=== PATIENT | female | born 1980 | race Caucasian/White ===

== ENCOUNTER 2023-09-27 12:50 | Emergency (ER) | payer OTHER, SELFPAY ==
--- NOTE | ~2023-09-27 | CT_ITS ---
EXAMINATION CT HEAD WITHOUT CONTRAST CLINICAL INFORMATION: Dizziness COMPARISON: None TECHNIQUE: CT of the head was performed without intravenous contrast. Reformatted axial, coronal, and sagittal images were reviewed. This CT examination was performed using dose optimization techniques as appropriate, variously including the following: *Automated exposure control *Adjustment of mA and/or kV according to patient size (this includes techniques or standardized protocols for targeted exams where dose is matched to indication/reason for exam; i.e. extremities or head) *Use of iterative reconstruction technique DLP: 128 mGy-cm FINDINGS: No intracranial hemorrhage, extra-axial fluid collection, or midline shift is identified. Aguillon-white matter differentiation is preserved. The ventricles are within normal limits. Basal cisterns are within normal limits. Paranasal sinuses are clear. Mastoid air cells and middle ear cavities are clear. No acute calvarial fractures. CT/CT head/brain wo IV con IMPRESSION: No acute intracranial abnormality.
--- NOTE | 2023-09-27 13:13 | ED_ITS ---
HPI - General Adult General Chief complaint: Dizziness Stated complaint: Dizziness Time Seen by Provider: 09/27/23 18:50 Source: patient Mode of arrival: ambulatory Limitations: no limitations History of Present Illness ED Provider: Roberth Goodrich PA-C HPI narrative: 43 yold female with pmh of gestational diabetes presents to the ED for dizzinees off and since monday describes as the room is spinning. Patient states dizziness occurs most when she is lying down and take position of her head. Patient states recently traveled from [facility]. Patient did have popping sound in both ears. Patient denies bleeding from the ears, ear pain, ringing in the ear, chest pain, shortness of breath, leg swelling, calf pain, coughing up blood, slurred speech, pleurisy facial droop, paralysis of extremities, loss of vision, recent surgery, or syncopal episode. Related Data Allergies Allergy/AdvReac Type Severity Reaction Status Date / Time No Known Allergies Allergy Verified 09/27/23 13:16 Review of Systems 2 Review of Systems: dizziness described as room spiining. Yes all other systems are reviewed and are negative PMFSH Social History Social History Advance Directives: No Advance Directives Information Provided: No Do you have a plan to hurt others: No Plan Physical Exam ED Vital Signs: Vital Signs - 24 hr 09/27/23 18:45 09/27/23 19:12 09/27/23 19:14 Temperature 98.6 F Pulse Rate 79 64 77 Respiratory Rate 18 Blood Pressure 129/96 H 137/87 138/94 H Pulse Oximetry 100 Oxygen Delivery Method Room Air 09/27/23 19:16 09/27/23 20:09 Temperature 97.8 F Pulse Rate 86 67 Respiratory Rate 16 Blood Pressure 133/94 H 135/93 H Pulse Oximetry 98 Oxygen Delivery Method Room Air BMI result Body Mass Index 29.5 Const General: cooperative, healthy appearing, comfortable, no acute distress, well developed, alert, awake and Physically active Orientation/consciousness: patient oriented x3 HENMT Head: Yes normal to inspection, Yes No palpable skull fracture present, Yes normocephalic and Yes atraumatic Ears: hearing grossly normal bilaterally, external ears normal, TM's normal bilaterally, TM normal on the right, TM normal on the left, EAC's normal, mastoids normal and no periauricular adenopathy Eyes Other: positive for horizontal nystagums when changing head position. General: appearance normal, both eyes and all related structures Neck Neck: Yes normal visual inspection, Yes full ROM, Yes no lymphadenopathy, Yes no meningeal signs, Yes trachea midline, Yes supple, No anterior neck swelling and No tender Chest Chest palpation & inspection: normal inspection of the chest and normal palpation of entire chest wall Resp Effort & Inspection: normal respiratory effort and able to speak in complete sentences Auscultation: clear to auscultation bilaterally Cardio Jugular venous distension: no JVD Heart sounds: S1 normal heart sound present and S2 normal heart sound present GI Inspection: Yes normal to inspection Palpation (GI): Soft to palpation, not firm, nontender, no guarding and not rigid General: No CVA tenderness and Yes no CVA tenderness Back/Spine/Pelvis Back: no CVA tenderness, No CVA tenderness and No back tenderness Skin General skin exam: no rashes or lesions noted, elasticity normal and turgor normal Neuro General: patient oriented x3, gait normal, tone normal, moves all extremities, Normal light touch and pain sensation, no meningeal signs, no focal motor deficits, CN's II-XI intact bilaterally and normal sensation to monofilament Extrem Other: Bilateral lower extremities negative for swelling, pitting edmea, or calf pain General: Yes normal to inspection, Yes full ROM and Yes capillary refill normal Psych Appearance: grossly normal, well kempt and not disheveled Course Course Course Narrative: This is a rapid medical exam performed by Roni Carvalho NP: Additional HPI, ROS, PE not included below will be deferred to primary provider. Patient is a 43-year-old female presenting to the emergency department with complaint of episodic extreme dizziness, worse with laying down and standing up since Monday night. Associated nausea. Was on an airplane nearly all day Monday. Ambulating with steady gait. Right EAC impacted with cerumen. Plan: EKG, labs Medications Administered Discontinued Medications Generic Name Dose Route Start Last Admin Trade Name Freq PRN Reason Stop Dose Admin Meclizine HCl 50 mg 09/27/23 19:10 09/27/23 19:50 Meclizine Hcl 25 Mg Tablet PO 09/27/23 19:11 50 mg ONCE ONE Administration Medical Decision Making Medical Decision Making [facility] Narrative: 43-year-old female with dizziness described as room spinning presents to the ED for room spinning sensation. Patient denies any neuro deficits. Physical exam positive for slight horizontal nystagmus. Negative for vertical nystagmus. Negative for any neuro deficits. NIH score is 0. 10:02pm: Patient head CT scan normal. Troponin negative. Heart score 0. Not suspecting stroke, posterior cerebellar infarct, carotid dissection, vertebral cerebral stenosis, meningitis, encephalitis, myocardial infarction, or brain bleed. Orthostatics negative. Want to the BED to speak to patient and as per nurse Valente patient left without completion of treatment. Patient left before CT scan results or prescription of meclizine could be sent Differential Diagnosis Differential Diagnoses: The differential diagnosis associated with the presentation includes (Vertigo, dizziness) Admission/Observation Consideration of admission/observation: Escalation of care including admission/observation considered Lab Data MDM Lab Attestation statement: I reviewed the patient's lab results. 09/27/23 13:34 09/27/23 13:34 Labs: Lab Results 09/27/23 09/27/23 Range/Units 13:34 19:27 WBC 8.3 (4.8-10.8) X10*3/uL RBC 4.44 (4.20-5.50) X10*6/uL Hgb 13.6 (12.0-16.0) g/dl Hct 40.4 (37.0-47.0) % MCV 91.0 (80.0-98.0) fL MCH 30.6 (27.0-33.0) pg MCHC 33.7 (31.0-35.0) g/dl RDW 13.2 (11.0-16.0) % Plt Count 253 (160-400) X10*3/uL MPV 9.0 L (9.4-12.3) fL Immature Gran % (Auto) 0.2 (0.0-0.4) % Neut % (Auto) 74.6 H (45-73) % Lymph % (Auto) 15.6 L (20-40) % Hocking % (Auto) 7.5 (2-11) % Eos % (Auto) 1.7 (0-4) % Baso % (Auto) 0.4 (0-2) % Lymph # (Auto) 1.3 (1.2-4.9) X10*3/uL [place] # (Auto) 0.6 (0.1-1.2) X10*3/uL Eos # (Auto) 0.1 (0.0-0.4) X10*3/uL Baso # (Auto) 0.0 (0.0-0.2) X10*3/uL Abs Immat Gran (auto) 0.02 (0.00-0.03) X10*3/uL Absolute Neuts (auto) 6.2 (2.0-8.3) x10*3/uL Absolute Nucleated RBC 0.000 (0.0-0.012) X10*3/uL Nucleated RBC % (auto) 0.0 (0.0-0.2) /100WBC Sodium 137 (135-145) mmol/L Potassium 3.8 (3.3-5.1) mmol/L Chloride 106 (96-108) mmol/L Carbon Dioxide 25 (22-29) mmol/L Anion Gap 10 L (12-20) BUN 13 (9-16) mg/dL Creatinine 0.80 (0.5-1.4) mg/dL Estim Creat Clear Calc 105.2 Estimated GFR > 60 Random Glucose 118 H (60-115) mg/dL Calcium 9.1 (8.4-10.2) mg/dL Total Bilirubin 0.3 (0.0-1.0) mg/dL AST 16 (5-31) U/L ALT 10 (0-31) U/L Alkaline Phosphatase 65 (39-117) U/L Troponin I High Sens < 2.7 (<3.5-17.0) ng/L Total Protein 7.3 (6.5-8.0) g/dL Albumin 4.1 (3.5-5.0) g/dL Beta HCG, Quant < 2 mIU/mL Independent Interpretation I performed an independent interpretation of an: EKG (EKG negative STEMI) and CT Scan Radiology Impression Discussion of test interpretation with radiology: I have reviewed the radiologist's reading. Independent Historian Clinical information obtained from an independent historian. History obtained from or confirmed by: Other (Patient) External Record Review External record reviewed: Other (Prior visits) Prescription Management I considered prescription management with: Other (Meclizine) Critical Care Time Critical Care Time Critical Care Time: No Discharge Plan Discharge Clinical Impression: Dizziness, Vertigo Patient Disposition: Left W/O Completing Treatment Discharge Date/Time: 09/27/23 21:35
[2023-09-27 13:14] VITALS: BP 142/93; PULSE 77; RESP 16; TEMP 36.6; O2SAT 98; BMI 29.5
--- NOTE | 2023-09-27 13:16 | ECG_ITS ---
Test Reason : DIZZINESS Blood Pressure : / mmHG Vent. Rate : 072 BPM Atrial Rate : 072 BPM P-R Int : 134 ms QRS Dur : 092 ms QT Int : 370 ms P-R-T Axes : 051 010 031 degrees QTc Int : 405 ms Normal sinus rhythm Low voltage QRS Borderline ECG No previous ECGs available Referred By: Citlali Carvalho Electronically Signed By:ROGER MATTA
[2023-09-27 13:37] LABS: MANUAL DIFF FLAG NO
[2023-09-27 13:39] LABS: Basophils Percent Auto 0.4 % (0-2); Eosinophils Absolute Auto 0.1 X10*3/uL (0.0-0.4); Eosinophils Percent Auto 1.7 % (0-4); Hematocrit 40.4 % (37.0-47.0); Hemoglobin 13.6 g/dl (12.0-16.0); Imm Gran Abs Auto 0.02 X10*3/uL (0.00-0.03); Imm Gran Pct Auto 0.2 % (0.0-0.4); Lymphocytes Absolute Auto 1.3 X10*3/uL (1.2-4.9); Lymphocytes Percent Auto 15.6 % (20-40); Mean Corpuscular HGB Conc 33.7 g/dl (31.0-35.0); Mean Corpuscular Hemoglobin 30.6 pg (27.0-33.0); Monocytes Absolute Auto 0.6 X10*3/uL (0.1-1.2); Monocytes Percent Auto 7.5 % (2-11); Neutrophils Absolute Auto 6.2 x10*3/uL (2.0-8.3); Neutrophils Percent Auto 74.6 % (45-73); Platelet Count 253 X10*3/uL (160-400); Red Blood Count 4.44 X10*6/uL (4.20-5.50); Red Cell Distribution Width 13.2 % (11.0-16.0); White Blood Count 8.3 X10*3/uL (4.8-10.8)
[2023-09-27 14:07] LABS: Alanine Aminotransferase 10 U/L (0-31); Albumin Level 4.1 g/dL (3.5-5.0); Alkaline Phosphatase 65 U/L (39-117); Anion Gap 10 (12-20); Aspartate Amino Transferase 16 U/L (5-31); Bilirubin Total 0.3 mg/dL (0.0-1.0); Blood Urea Nitrogen 13 mg/dL (9-16); Calcium 9.1 mg/dL (8.4-10.2); Carbon Dioxide 25 mmol/L (22-29); Chloride 106 mmol/L (96-108); Creatinine Clr Calc Pharmacy 105.2; Estimated Glomerular Filt Rate > 60; Glucose Random 118 mg/dL (60-115); HCG Quantitative < 2 mIU/mL; Potassium 3.8 mmol/L (3.3-5.1); Sodium 137 mmol/L (135-145); Total Protein 7.3 g/dL (6.5-8.0)
--- OUTSIDE RECORDS SUMMARY | 2023-09-27 18:13 | XMS_ITS | Continuity of Care Document ---
Author Organization [facility] ancer Care Address [address] [place] [address]- Care Team Providers Care Underground Bolting Machine Operator Name Role Phone Tim Farnsworth MD Primary Care Physician Encounter [facility] ACCT R [id number] Date(s): 10/18/22 - 11/17/22 [facility] Care [address] [place] [id number] Attending Physician: Felton Smith Admitting Physician: Admtr, [id number] Referring Physician: Admtr, [id number] Allergies, Adverse Reactions, Alerts Substance Reaction Severity Status Other Environmental Allergy Allergy to p ollen Trees and shrubs Active Immunizations Given and Recorded Vaccine Date Status Refusal Reason SARS-CoV-2 (COVID-19) mRNA BNT-162b2 vac 06/05/20 Given SARS-CoV-2 (COVID-19) mRNA BNT-162b2 vac 05/15/20 Given Medications acetaminophen 325 mg oral tablet 650 mg, By Mouth, Every 4 hours, PRN, (1-3), may give 325mg per patient preference and re-dose [id number] within 4 hours, if needed. Patient should only receive a total of 650mg of Acetaminophen every 4 hours., Refills 0, Maintenance, Pain , Mild, 0... Start Date: 08/23/20 Status: Ordered Claritin 10 mg oral tablet 10 mg, 1, tablet, By Mouth, Daily in AM, Refills 0, Maintenance, 07/06/20 8:35:00 EDT, Partial fillupon patient request if the prescription is for a schedule II opioid drug. Start Date: 07/06/20 Status: Ordered Ovidrel 250 mcg/0.5 mL subcutaneous solution See Instructions, Take 2 Subcutaneous Injections Once per cycle when directed, # 2 each, 3 Refills,Maintenance, 04/05/22 14:55:00 EST, Solution, [facility], Partial fill upon patient request if the prescription is for a schedule II opioi... 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 Wears contacts for nearsightedness Confirmed Active Painful Heavy periods Confirmed Active Social History Social History Type Response Smoking Status Never (less than 100 in lifetime) entered on: 08/29/19 Sex Female Patient Care team information Care Team Personnel Name: Hossein ELLIS, Riya Sanabria Position: [facility] SN RN Member Role: Primary Care Nurse Name: Isabel Vilchis RN Position: [facility] Onco RN Member Role: Primary Care Nurse Name: Tim Farnsworth MD Position: [facility] Physician - Primary Care Member Role: PCP Address: Address: [address] [place] [address] Customer [place] [address]- Care Team Related Persons Name: KAISER MORALES Address: [address] [place], [place] Name: KAREN MORALES Address: [address] [place] [address] Name: JULIAN PACK Address: AMER[employer] Address: [address] [place] [address]
--- OUTSIDE RECORDS SUMMARY | 2023-09-27 18:13 | XMS_ITS | Continuity of Care Document ---
Author Organization [facility] e Medicine Address [address] [place] [address]- Care Team Providers Care Flight Dynamicist Name Role Phone Javad LINO, Tim Ramirez Primary Care Physician [phone] Encounter [facility] Date(s): 09/26/19 - 10/03/19 [facility] Reproductive Medicine [address] [place] [id number]- [facility] Attending Physician: Cornelia Lares MD Referring Physician: Lily Troy MD Allergies, Adverse Reactions, Alerts No Known Medication Allergies Social History Social History Type Response Smoking Status Never (less than 100 in lifetime) entered on: 08/29/19 Sex
--- OUTSIDE RECORDS SUMMARY | 2023-09-27 18:13 | XMS_ITS | Continuity of Care Document ---
Author Organization [facility] ancer Care Address [address] [place] [address]- Care Team Providers Care Grease And Tallow Pumper Name Role Phone Tim Farnsworth MD Primary Care Physician Encounter [facility] Date(s): 10/05/21 - 11/04/21 [facility] Care [address] [place], [place] [address] Attending Physician: Felton Smith Admitting Physician: Admtr, [...] give 325mg per patient preference and re-dose [id number] within 4 hours, if needed. Patient should [...] opioid drug. Start Date: 07/06/20 Status: Ordered Problem List Condition Effective Dates Status Health Status Inform ant Adjustment disorder with mix ed anxiety and depressed mood(Confirmed) Active Chlamydia(Confirmed) 2006 Active Cutaneous melanoma left popliteal(Confirmed) 06/25/20 Active Wears contacts for nearsightedness(Confirmed) Active Painful Heavy periods(Confirmed) Active Social History Social History Type Response Smoking Status Never (less than 100 in lifetime) entered on: 08/29/19 Sex Female Care Team Personnel Name: Tim Farnsworth MD Address: [address] [place] [address] [place] [address]-
--- OUTSIDE RECORDS SUMMARY | 2023-09-27 18:13 | XMS_ITS | Continuity of Care Document ---
Author Organization [facility] Address [address] [place] [address]- Care Team Providers Care Polishing Wheel Repairer Name Role Phone Tim Farnsworth MD Primary Care Physician Encounter [facility] Date(s): 07/09/20 - 08/08/20 [facility] [address] [place] [id number] Allergies, Adverse Reactions, Alerts No Known Medication Allergies Substance Reaction Severity Status Other Environmental Allergy Allergy to p ollen Trees and shrubs Active Immunizations Given and Recorded Vaccine Date Status Refusal Reason SARS-CoV-2 (COVID-19) mRNA BNT-162b2 vac 06/05/20 Given SARS-CoV-2 (COVID-19) mRNA BNT-162b2 vac 05/15/20 Given Medications aspirin 81 mg oral delayed release tablet 81 mg, 1, tablet, By Mouth, Daily, # 90 tablet, Refills 0, Maintenance, 07/22/20 16:03:00 EDT, Partial fill upon patient request if the prescription is for a schedule II opioid drug. Start Date: 07/22/20 Status: Ordered Claritin 10 mg oral tablet 10 mg, 1, tablet, By Mouth, Daily, Refills 0, Maintenance, 07/06/20 8:35:00 EDT, Partial fill upon patient request if the prescription is for a schedule II opioid drug. Start Date: 07/06/20 Status: Ordered metFORMIN 500 mg oral tablet 1 tablet = 500 mg, By Mouth, Daily, # 30 tablet, 2 Refills, Maintenance, 07/14/20 10:24:00 EDT, [facility]/pharmacy #[id number], Partial fill upon patient request if the prescription is for a schedule II opioid drug., 175.26, cm, 07/06/20 8:32:00 EDT, Height Start Date: 07/14/20 Status: Ordered Ultra-Vince Multivitamins with Folic Acid 1 mg oral tablet 1 tablet, By Mouth, Daily, 0 Refills, Maintenance, 07/06/20 8:36:00 EDT, Partial fill upon patient request if the [...]
--- OUTSIDE RECORDS SUMMARY | 2023-09-27 18:13 | XMS_ITS | Continuity of Care Document ---
Author Organization [facility] ancer Care Address [address] [place] [address]- Care Team Providers Care Client Services Coordinator Name Role Phone Tim Farnsworth MD Primary Care Physician [phone] Encounter [facility] [place] [place] Date(s): 04/14/22 - 06/20/22 [facility] Care [address] [place] [id number]- Discharge Disposition: A-D/C Home Attending Physician: Jace Yung MD Admitting Physician: Jace Yung MD Referring Physician: Tim Farnsworth MD Allergies, Adverse Reactions, Alerts Substance Reaction Severity [...] give 325mg per patient preference and re-dose [id number] within 4 hours, if needed. Patient should [...] Confirmed Active Painful Heavy periods Confirmed Active Vital Signs Most recent to oldest [Reference Range]: 1 Height 175 cm (04/20/22 1:47 PM) Weight 88.2 kg (04/20/22 1:47 PM) Oxygen Saturation [94-100 %] 100 % (04/20/22 1:47 PM) Pulse Rate [55-90 bpm] 76 bpm (04/20/22 1:47 PM) Body Mass Index [18.5-24.99 kg/m2] 28.8 kg/m2 *H* (04/20/22 1:47 PM) Blood Pressure [90-138/55-84 mm Hg] 130/ 92mm Hg (04/20/22 1:47 PM) Temperature [96.8-100.4 DegF] 97.9 DegF (04/20/22 1:47 PM) Mode of Delivery (Oxygen) Room air (04/20/22 1:47 PM) Blood pressure sites Arm, left (04/20/22 1:47 PM) Temperature Route Temporal (04/20/22 1:47 PM) Dry Weight 88.2 kg (04/20/22 1:47 PM) Weight Obtained Via Standing scale (04/20/22 1:47 PM) Dry Weight Obtained Via Standing scale (04/20/22 1:47 PM) Social History Social History Type Response Smoking Status Never (less than 100 in lifetime) entered on: 08/29/19 Sex Female Note * Jael Darnell: PERFORM, SIGN, VERIFY Event Display: Patient Education/Instruction Authored Date: [id number] [facility] *Heme/Onc Adult Clinical Summary Name IVY PACK Age 42 Years 1980 PCP Tim Farnsworth MD PCP Visit Date 04/14/2022 10:56:00 Additional Instructions: Scheduled Appointments?? Future Appointments ?No Future Appointments Scheduled Follow-Up Instructions ?? With: Address: When: [facility], [address] [facility] [place] [address] Business (2) 10/19/2022 9:15 AM Diagnosis Medications: Please continue your medications until treatment is completed or stopped by your provider. Discuss any questions related to medications with your provider. Medications to Continue with No Changes These medications were not printed or sent to your pharmacy Acetaminophen (acetaminophen 325 mg oral tablet) 650 Milligram Oral every 4 hours as needed Pain , Mild. (1-3), may give 325mg per patient preference and re-dose with 325mg within 4 hours, if needed.Patient should only receive a total of 650mg of Acetaminophen every 4 hours.. Next Dose: Chorionic Gonadotropin (Human) (Ovidrel 250 mcg/0.5 mL subcutaneous solution) Take 2 Subcutaneous Injections Once per cycle when directed. Refills: 3. Next Dose: ClomiPHENE (clomiPHENE 50 mg oral tablet) 1 tab(s) Oral Daily for 5 Days. beginning on the 3RD day of menstrual cycle. Refills: 3. Next Dose: Loratadine (Claritin 10 mg oral tablet) 1 tab(s) Oral Daily in the morning. Next Dose: Allergy Info:?? Other Environmental Allergy Medications Given This Visit Future Orders ?No future orders Vital Signs Height 175 cm Weight 88.2 kg BMI 28.8 kg/m2 Blood Pressure 130 mm Hg/92 mm Hg Temperature 97.9 DegF Pulse Rate 76 bpm Respiratory Rate 02 Sat Mode of Delivery 100 %/Room air You can now view a summary of your hospital visit from the comfort of your home through a free online portal called [employer]. [employer] is a website that allows you to securely view your medical information including discharge summary, medications and follow-up visits. ??You can alsosend a secure electronic message to your doctor???s office to request appointments, renew medications or just ask a question. You can enroll at [email or web address] or register during your next office visit. Disclaimer:?? The information provided is of a general nature and is intended to be used in conjunction with the recommendations and advice of your health care practitioner. ??Every effort has been made to ensure that the information provided is accurate and complete at the time it is provided to you however, as your needs change, or, as new ??information becomes available, different or additional instructions may be required. If you have questions, please consult with your primary care provider or pharmacist, as appropriate. ??This information is not intended to serve as substitution for assessment and evaluation by a qualified health care provider. If you do not have a primary care provider, you may find a [facility] provider by calling [facility] Room[facility]veal at [phone]. For information about the plan of care including goals and instructions for your diagnosis, please see the patient education orders section of this document. Patient Education Materials?? The content of this educational material or handout may have been modified, supplemented, or adapted from its original content and format to support your individualized medical care. Patient Care team information Care Team Personnel Name: Riya Catalan RN Position: [facility] SN RN Member Role: Primary Care Nurse Name: Isabel Vilchis RN Position: [facility] Onco RN Member Role: Primary Care Nurse Name: Tim Farnsworth MD Position: [facility] Physician (General Medicine) Member Role: PCP Address: Address: [address] [place] [address] [place] [address]- Care Team Related Persons Name: KAISER MORALES Address: [address] Name: KAREN MORALES Address: [address] Name: JULIAN PACK Address: AMJESSICA Address: [address] [place] [address]
--- OUTSIDE RECORDS SUMMARY | 2023-09-27 18:13 | XMS_ITS | Continuity of Care Document ---
Author Organization [facility] e Medicine Address [address] [facility] [address] [facility], [address] [place] [address]- Care Team Providers Care Communications Planner Name Role Phone Tim Farnsworth MD Primary Care Physician [phone] Encounter [facility] Date(s): 05/09/22 - 06/08/22 [facility] Reproductive Medicine [address] [facility] [address] [facility], 4th [address] [place], [place] [address] Attending Physician: Felton Smith Admitting Physician: Felton Smith Referring Physician: AdmtrFelton Allergies, Adverse Reactions, Alerts Substance Reaction Severity [...] give 325mg per patient preference and re-dose [id number] within 4 hours, if needed. Patient should [...] Team Personnel Name: Riya Catalan RN Position: [facility] SN RN Member Role: Primary Care Nurse Name: Isabel Vilchis RN Position: [facility] Onco RN Member Role: Primary Care Nurse Name: Tim Farnsworth MD Position: [facility] Physician (General Medicine) Member Role: PCP Address: Address: [address] [place] [address] [place] [address]- Care Team Related Persons Name: KAISER MORALES Address: [address] [place] [address] Name: KAREN MORALES Address: [address] [place] [address] Name: JULIAN PACK Address: [employer] Address: [address] [place] [address]
--- OUTSIDE RECORDS SUMMARY | 2023-09-27 18:13 | XMS_ITS | Continuity of Care Document ---
Author Organization [facility] ancer Care Address [address] [place] [address]- Care Team Providers Care Papier Mache' Molder Name Role Phone Tim Farnsworth MD Primary Care Physician Encounter [facility] [place] Date(s): 04/20/22 - 05/20/22 [facility] Care [address] [place] [id number] Allergies, Adverse Reactions, Alerts Substance Reaction Severity [...] give 325mg per patient preference and re-dose [id number] within 4 hours, if needed. Patient should [...] Team Personnel Name: Riya Catalan RN Position: [facility] SN RN Member Role: Primary Care Nurse Name: Isabel Vilchis RN Position: [facility] Onco RN Member Role: Primary Care Nurse Name: Tim Farnsworth MD Position: [facility] Physician (General Medicine) Member Role: PCP Address: Address: [address] [place] [address] [place] [address]- Care Team Related Persons Name: KAISER MORALES Address: [address] [place] [address] Name: KAREN MORALES Address: [address] [place] [address] Name: JULIAN PACK Address: AMER[employer] Address: [address] [place] [address] [place]
--- OUTSIDE RECORDS SUMMARY | 2023-09-27 18:13 | XMS_ITS | Continuity of Care Document ---
Author Organization [facility] e Medicine Address [address], 4t [address] [place] [address]- Care Team Providers Care Carpenter Railcar Name Role Phone Tim Farnsworth MD Primary Care Physician Encounter [facility] Date(s): 10/26/19 - 11/02/19 [facility] [address], 4th [address] [place] [address]- [facility] Attending Physician: Lily Troy MD Referring Physician: Tim Farnsworth MD Allergies, Adverse Reactions, Alerts No Known Medication Allergies Problem List Condition Effective Dates Status Health Status Inform ant Adjustment disorder with mix ed anxiety and depressed mood(Confirmed) Active Social History Social History Type Response Smoking Status Never (less than 100 in lifetime) entered on: 08/29/19 Sex
--- OUTSIDE RECORDS SUMMARY | 2023-09-27 18:14 | XMS_ITS | Continuity of Care Document ---
Author Organization [facility] Care Address [address] [place] [address]- Care Team Providers Care Collaborating Supervising Physician Name Role Phone Tim Farnsworth MD Primary Care Physician [phone] Encounter [facility] [place] Date(s): 10/05/21 - 12/11/21 [facility] Care [address] [place] [address] Discharge Disposition: A-D/C Home Attending Physician: Jace [...] give 325mg per patient preference and re-dose [id number] within 4 hours, if needed. 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 Wears contacts for nearsightedness Confirmed Active Painful Heavy periods Confirmed Active Vital Signs Most recent to oldest [Reference Range]: 1 Height 175 cm (10/11/21 10:46 AM) Weight 86.8 kg (10/11/21 10:46 AM) Pulse Rate [55-90 bpm] 67 bpm (10/11/21 10:46 AM) Body Mass Index [18.5-24.99] 28.34 *H* (10/11/21 10:46 AM) Blood Pressure [90-138/55-84 mm Hg] 120/ 87mm Hg (10/11/21 10:46 AM) Temperature [96.8-100.4 DegF] 97.4 DegF (10/11/21 10:46 AM) Blood pressure sites Arm, left (10/11/21 10:46 AM) Temperature Route Temporal (10/11/21 10:46 AM) Dry Weight 86.8 kg (10/11/21 10:46 AM) Weight Obtained Via Standing scale (10/11/21 10:46 AM) Dry Weight Obtained Via Standing scale (10/11/21 10:46 AM) Social History Social History Type Response Smoking Status Never (less than 100 in lifetime) entered on: 08/29/19 Sex Female Patient Care team information Personnel Name: Tim Farnsworth MD Address: Address: [address] [place] [address] Gourmet Coffee Attendant [place], [place] [address]
--- OUTSIDE RECORDS SUMMARY | 2023-09-27 18:14 | XMS_ITS | Continuity of Care Document ---
Author Organization [facility] e Medicine Address [address] [facility], 4t [address] [place] [address]- Care Team Providers Care Embossing Calender Operator Name Role Phone Tim Farnsworth MD Primary Care Physician Encounter [facility] Date(s): 12/16/19 - 12/23/19 [facility] [address] [facility], 4th [address] [place] [address]- [facility] Attending Physician: Soco Padilla MD Referring Physician: Tim Farnsworth MD Allergies, Adverse Reactions, Alerts No Known Medication Allergies Problem List Condition Effective Dates Status Health Status Inform ant Adjustment disorder with mix ed anxiety and depressed mood(Confirmed) Active Social History Social History Type Response Smoking Status Never (less than 100 in lifetime) entered on: 08/29/19 Sex
--- OUTSIDE RECORDS SUMMARY | 2023-09-27 18:14 | XMS_ITS | Continuity of Care Document ---
Author Organization [facility] e Medicine Address [address] [facility], 4t [address] [place] [address]- Care Team Providers Care Braid Cutter Name Role Phone Tim Farnsworth MD Primary Care Physician [place] [facility] [place] 05[place]09[place]22 - 05/16/22 [facility] [address] [facility] 4th [address] [place], [place] [address] Attending Physician: Cassandra Sage MD Allergies, Adverse Reactions, Alerts Substance Reaction [...] give 325mg per patient preference and re-dose [id number] within 4 hours, if needed. Patient should [...] oldest [Reference Range]: 1 Height 175 cm (05/09/22 3:22 PM) Weight 89.6 kg (05/09/22 3:22 PM) Pulse Rate [55-90 bpm] 82 bpm (05/09/22 3:22 PM) Body Mass Index [18.5-24.99 kg/m2] 29.26 kg/m2 *H* (05/09/22 3:22 PM) Blood Pressure [90-138/55-84 mm Hg] 142/ 88mm Hg *H* (05/09/22 3:22 PM) Blood pressure sites Arm, right (05/09/22 3:22 PM) Social History Social History Type Response Smoking Status Never (less than 100 in lifetime) entered on: 08/29/19 Sex Female Note * Vee Junior [place]: PERFORM, SIGN, VERIFY Event Display: Patient Education/Instruction Authored Date: [id number] [facility] Clinical Summary Name IVY PACK Age 42 Years 1980 PCP Javad LINO, Tim Ramirez PCP Visit Date 05/09/2022 14:58:00 Additional Instructions: Scheduled Appointments?? Future Appointments ?No Future Appointments Scheduled Follow-Up Instructions ?? Diagnosis Medications: Please continue your medications until [...] cycle when directed. Refills: 3. Next Dose: Loratadine (Claritin 10 mg oral tablet) 1 tab(s) Oral Daily in the morning. Next Dose: Allergy Info:?? Other Environmental Allergy Medications Given This Visit Future Orders ?No future orders Vital Signs Height 175 cm Weight 89.6 kg BMI 29.26 kg/m2 Blood Pressure 142 mm Hg/88 mm Hg Temperature Pulse Rate 82 bpm Respiratory Rate 02 Sat Mode of Delivery / You can now view a summary of your hospital visit from the comfort of your home through a free online portal called [employer]. [employer] is a website that allows you to securely view your medical information including discharge summary, medications and follow-up visits. ??You can alsosend a secure electronic message to your doctor???s office to request appointments, renew medications or just ask a question. You can enroll at [email or web address] or register during your next office [...] primary care provider, you may find a [facility] provider by calling [facility] at [phone]. For information about the plan of care including goals and instructions for your diagnosis, please see the patient education orders section of this document. Patient Education Materials?? The content of this educational material or handout may have been modified, supplemented, or adapted from its original content and format to support your individualized medical care. Additional Provider Instructions: sono performed today. Patient Care team information Care Team Personnel Name: Hossein ELLIS, Riya Sanabria Position: [facility] SN RN Member Role: Primary Care Nurse Name: Deng ELLIS, Isabel Position: [facility] Onco RN Member Role: Primary Care Nurse Name: Javad LINO, Tim Ramirez Position: [facility] Physician (General Medicine) Member Role: PCP Address: Address: [address] [place] [address] Visual Basic Programmer RADHA Zamora [address]- Care Team Related Persons Name: KAISER MORALES Address: home [address] [place] [address] Name: KAREN MORALES Address: home [address] [place] [address] Name: JULIAN PACK Address: [employer] Address: home [address]
--- OUTSIDE RECORDS SUMMARY | 2023-09-27 18:14 | XMS_ITS | Continuity of Care Document ---
Author Organization [facility] ter Address [address] [place] [address]- Care Team Providers Care Art Coordinator Name Role Phone Tim Farnsworth MD Primary Care Physician Encounter [facility] Date(s): 07/29/20 - 07/29/[address] [address]- Discharge Disposition: A-D/C Home Attending Physician: Pancho Ariza MD Admitting Physician: Pancho Ariza MD Referring Physician: Pancho Ariza MD Allergies, Adverse Reactions, Alerts No Known [...] tablet, 2 Refills, Maintenance, 07/14/20 10:24:00 EDT, [facility]/pharmacy #[id number], Partial fill upon patient request if the prescription is for a schedule II opioid drug., 175.26, cm, 07/06/20 8:32:00 EDT, Height Start Date: 07/14/20 Status: Ordered Ultra- Multivitamins with Folic Acid 1 mg oral [...] for nearsightedness(Confirmed) Active Painful Heavy periods(Confirmed) Active Vital Signs Most recent to oldest [Reference Range]: 1 2 3 Height 175 cm (07/29/20 6:38 AM) 175 cm (07/22/20 3:58 PM) Weight 98.5 kg (07/29/20 6:38 AM) 96.7 kg (07/22/20 3:58 PM) Oxygen Saturation [94-100 %] 97 % (07/29/20 9:15 AM) 98 % (07/29/20 9:00 AM) 100 % (07/29/20 8:45 AM) Pulse Rate [55-90 bpm] 105 bpm *H* (07/29/20 6:38 AM) Body Mass Index [18.5-24.99] 32.16 *>HHI* (07/29/20 6:38 AM) 31.58 *>HHI* (07/22/20 3:58 PM) Blood Pressure [90-138/55-84 mm Hg] 112/74mm Hg (07/29/20 9:15 AM) 106/62mm Hg (07/29/20 9:00 AM) 102/62mm Hg (07/29/20 8:45 AM) Respiratory Rate [16-30 br/min] 15 br/min *L* (07/29/20 9:15 AM) 12 br/min *L* (07/29/20 9:00 AM) 17 br/min (07/29/20 8:45 AM) Temperature [96.8-100.4 DegF] 97.8 DegF (07/29/20 8:45 AM) 97.9 DegF (07/29/20 6:38 AM) Liters per Minute 5 L/min (07/29/20 9:00 AM) 5 L/min (07/29/20 8:45 AM) Mode of Delivery (Oxygen) Room air (07/29/20 9:15 AM) Simple face mask (07/29/20 9:00 AM) Simple face mask (07/29/20 8:45 AM) Blood pressure sites Arm, right (07/29/20 8:45 AM) Arm, left (07/29/20 6:38 AM) Temperature Route Temporal (07/29/20 6:38 AM) Dry Weight 96.7 kg (07/22/20 3:58 PM) Weight Obtained Via Standing scale (07/29/20 6:38 AM) Patient/family stated (07/22/20 3:58 PM) Dry Weight Obtained Via Patient/family s tated (07/22/20 3:58 PM) Social History Social History Type Response Smoking Status Never (less than 100 in lifetime) entered on: 08/29/19 Sex Female
--- OUTSIDE RECORDS SUMMARY | 2023-09-27 18:14 | XMS_ITS | Continuity of Care Document ---
Author Organization [facility] Address [address] [place] [address]- Care Team Providers Care Fabricator Assembler Metal Products Name Role Phone Tim Farnsworth MD Primary Care Physician Encounter 09/16/22 - 09/23/22 [facility] [address], [address] [place], [place] [address] Attending Physician: Cornelia Martinez NP Admitting Physician: Cornelia Martinez NP Referring Physician: Cornelia Martinez NP Allergies, Adverse Reactions, Alerts Substance Reaction Severity [...] give 325mg per patient preference and re-dose [id number] within 4 hours, if needed. Patient should [...] Confirmed Active Painful Heavy periods Confirmed Active Results Radiology Reports * Exam Date Time Procedure Performing Provider Status 09/16/22 10:31 AM MM Digital Mammo Screening Theresa Perez; Auth (Verified) Notes: (MM Digital Mammo Screening) Reason For Exam: Z12.31 ROUTINE SCREEN RESULT: MM Digital Mammo Screening PROCEDURE: MM Digital Mammo Screening INDICATION: Screening for breast cancer. No known palpable abnormalities. COMPARISON: Prior mammograms 09/14/2021, 10/05/2015. TECHNIQUE: Full-field digital CC and MLO 3-D tomosynthesis images of both breasts were acquired. Computer-aided detection (CAD) was utilized in the interpretation of this study. DENSITY: The breast tissue contains scattered areas of fibroglandular density. FINDINGS: No suspicious masses, suspicious microcalcifications, or areas of architectural distortion are seen in either breast to suggest malignancy. IMPRESSION: No mammographic evidence of malignancy. RECOMMENDATION: Annual mammographic screening BI-RADS: 1 (Negative) Lay letter mailed to patient WSN: [id number] Ordering Physician: Cornelia Martinez Dictated By: Luz Newman MD Dictated Date/Time: 09/16/22 11:06 am Reviewed By: Luz Newman MD Signed By: Luz Newman MD Signed Date/Time: 09/16/22 11:06 am Transcribed By: ISHA Wire Temperer Date/Time: 09/16/22 11:04 am Birads: Social History Social History Type Response Smoking Status Never (less than 100 in lifetime) entered on: 08/29/19 Sex Female Patient Care team information Care Team Personnel Name: Riya Catalan RN Position: [facility] SN RN Member Role: Primary Care Nurse Name: Isabel Vilchis RN Position: [facility] Onco RN Member Role: Primary Care Nurse Name: Tim Farnsworth MD Position: [facility] Physician - Primary Care Member Role: PCP Address: Address: [address] [place] [address] Rn Cardiac Cath RADHA Zamora [address]- Care Team Related Persons Name: KAISER MORALES Address: home [address] [place] [address] Name: KAREN MORALES Address: [address] [place] [address] Name: JULIAN PACK Address: [employer] Address: [address] [place] [address]
--- OUTSIDE RECORDS SUMMARY | 2023-09-27 18:14 | XMS_ITS | Continuity of Care Document ---
Author Organization [facility] Address [address] [place] [address]- Care Team Providers Care Stable Manager Name Role Phone Tim Farnsworth MD Primary Care Physician [phone] Encounter [facility] [place] Date(s): 01/15/21 - 02/14/21 [facility] [address] [place] [address]- Allergies, Adverse Reactions, Alerts Substance Reaction Severity [...] give 325mg per patient preference and re-dose [id number] within 4 hours, if needed. Patient should [...] opioid drug. Start Date: 07/06/20 Status: Ordered prochlorperazine 5 mg oral tablet 1 tablet = 5 mg, By Mouth, Every 6 hours, PRN Nausea, # 30 tablet, 1 Refills, Maintenance, 10/24/2111:38:00 EDT, [facility]/pharmacy #[id number], Partial fill upon patient request if the prescription is for a schedule II opioid drug., 175, cm, 10/13/20 16:17:00 E... Start Date: 10/23/20 Status: Ordered Ultra-Vince Multivitamins with Folic Acid [...]
--- OUTSIDE RECORDS SUMMARY | 2023-09-27 18:14 | XMS_ITS | Continuity of Care Document ---
Author Organization [facility] ter Address [address] [place] [address]- Care Team Providers Care Animal Services Officer Name Role Phone Javad LINO, Tim Ramirez Primary Care Physician Encounter [facility] [place] Date(s): 08/06/20 - 09/29/[address] [address]- Attending Physician: Rufus Funez MD Referring Physician: Edwina Henderson CNM Allergies, Adverse Reactions, Alerts Substance Reaction Severity [...] give 325mg per patient preference and re-dose [id number] within 4 hours, if needed. Patient should [...] opioid drug. Start Date: 07/06/20 Status: Ordered Ultra-Vince Multivitamins with Folic Acid [...]
--- OUTSIDE RECORDS SUMMARY | 2023-09-27 18:14 | XMS_ITS | Continuity of Care Document ---
Author Organization [facility] Address [address] [facility] [place] [address]- Care Team Providers Care Safety Leader Name Role Phone Tim Farnsworth MD Primary Care Physician Encounter 09/14/21 - 09/21/21 [facility] [address] [facility], [address] [place] [address]- Attending Physician: Kate Cool CNM Admitting Physician: Kate Cool CNM Referring Physician: Kate Cool CNM Allergies, Adverse Reactions, Alerts Substance Reaction [...] give 325mg per patient preference and re-dose [id number] within 4 hours, if needed. Patient should [...]
--- OUTSIDE RECORDS SUMMARY | 2023-09-27 18:14 | XMS_ITS | Continuity of Care Document ---
Author Organization [facility] ter Address [address] [place] [address]- Care Team Providers Care Therapist Name Role Phone Tim Farnsworth MD Primary Care Physician [phone] Encounter [facility] [place] [place] Date(s): 10/10/19 - 11/20/[address] [address]- [facility] Discharge Disposition: A-D/C Home Attending Physician: Lily Troy MD Admitting Physician: Lily Troy MD Referring Physician: Lily Troy MD Allergies, Adverse Reactions, Alerts No Known Medication Allergies Problem List Condition Effective Dates Status Health Status Inform ant Adjustment disorder with mix ed anxiety and depressed mood(Confirmed) Active Social History Social History Type Response Smoking Status Never (less than 100 in lifetime) entered on: 08/29/19 Sex
--- OUTSIDE RECORDS SUMMARY | 2023-09-27 18:14 | XMS_ITS | Continuity of Care Document ---
Author Organization [facility] Address [address] [place] [address]- Care Team Providers Care Pediatric Nurse Name Role Phone Tim Farnsworth MD Primary Care Physician [place] [facility] [place] 08/17/20 - 09/16/20 [facility] [address] [place] [address]- Allergies, Adverse Reactions, Alerts Substance Reaction Severity [...] give 325mg per patient preference and re-dose [id number] within 4 hours, if needed. Patient should [...] opioid drug. Start Date: 07/06/20 Status: Ordered Ultra- Multivitamins with Folic Acid [...]
--- OUTSIDE RECORDS SUMMARY | 2023-09-27 18:14 | XMS_ITS | Continuity of Care Document ---
Author Organization [facility] Address [address] [place] [address]- Care Team Providers Care Surgical Supplies Sterilizer Name Role Phone Tim Farnsworth MD Primary Care Physician Encounter [facility] [place] Date(s): 08/14/20 - 09/13/20 [facility] [address] [place] [address] Allergies, Adverse Reactions, Alerts No Known [...] give 325mg per patient preference and re-dose [id number] within 4 hours, if needed. Patient should only receive a total of 650mg of Acetaminophen every 4 hours., Refills 0, Maintenance, Pain , Mild, 0... Start Date: 08/23/20 Status: Ordered aspirin 81 mg oral delayed release tablet [...] opioid drug. Start Date: 07/06/20 Status: Ordered ibuprofen 800 mg oral tablet 800 mg, 1, tablet, By Mouth, Every 8 hours, PRN, (4-6), may give 400mg per patient preference and re-dose with 400mg within 8 hours if needed. Patient should only receive a total of 800mg of Ibuprofen every 8 hours., Refills 0, Maintenance, Pain , M... Start Date: 08/23/20 Status: Ordered Ultra-Vince Multivitamins with Folic Acid [...]
--- OUTSIDE RECORDS SUMMARY | 2023-09-27 18:14 | XMS_ITS | Continuity of Care Document ---
Author Organization [facility] ter Address [address] [place] [address]- Care Team Providers Care Venetian Blind Machine Operator Name Role Phone Tim Farnsworth MD Primary Care Physician En[place] [facility] [place] Date(s): 08/19/20 - 08/23/[address] [address] Discharge Disposition: A-D/C Home Attending Physician: Rufus Funez MD Admitting Physician: Rufus Funez MD Referring Physician: Rufus Funez MD Allergies, Adverse Reactions, Alerts No Known [...] give 325mg per patient preference and re-dose [id number] within 4 hours, if needed. Patient should only receive a total of 650mg of Acetaminophen every 4 hours., Refills 0, Maintenance, Pain , Mild, 0... Start Date: 08/23/20 Status: Ordered Acetaminophen Tablet 650 mg, Tablet, By Mouth, Every 4 hours, PRN for Pain , Mild, (1-3), may give 325mg per patient preference and re-dose with 325mg within 4 hours, if needed. Patient should only receive a total of 650mg of Acetaminophen every 4 hours., Routine, 08/21... Start Date: 08/21/20 Stop Date: 08/24/20 Status: Discontinued aspirin 81 mg oral delayed release tablet [...] , M... Start Date: 08/23/20 Status: Ordered Ibuprofen Tablet 800 mg, Tablet, By Mouth, Every 8 hours, PRN for Pain , Moderate, (4-6), may give 400mg per patientpreference and re-dose with 400mg within 8 hours if needed. Patient should only receive a total of 800mg of Ibuprofen every 8 hours., Routine, ... Start Date: 08/21/20 Stop Date: 08/24/20 Status: Discontinued Ultra-Vince Multivitamins with Folic Acid 1 mg [...] Range]: 1 2 3 Height 175 cm (08/23/20 9:40 AM) 175 cm (08/22/20 4:16 PM) 175 cm (08/22/20 9:35 AM) Weight 101 kg (08/19/20 9:28 PM) Oxygen Saturation [94-100 %] 98 % (08/22/20 12:15 AM) 98 % (08/21/20 2:15 PM) 97 % (08/21/20 2:00 PM) Pulse Rate [55-90 bpm] 88 bpm (08/23/20 9:40 AM) 89 bpm (08/22/20 4:16 PM) 94 bpm *H* (08/22/20 9:35 AM) Body Mass Index [18.5-24.99] 32.98 *>HHI* (08/19/20 9:28 PM) Blood Pressure [90-138/55-84 mm Hg] 134/78mm Hg (08/23/20 9:40 AM) 138/84mm Hg (08/22/20 4:16 PM) 137/82mm Hg (08/22/20 9:35 AM) Respiratory Rate [16-30 br/min] 19 br/min (08/23/20 9:40 AM) 16 br/min (08/23/20 8:57 AM) 16 br/min (08/23/20 8:57 AM) Temperature [96.8-100.4 DegF] 97.9 DegF (08/23/20 9:40 AM) 97.8 DegF (08/22/20 4:16 PM) 98.0 DegF (08/22/20 9:35 AM) Mode of Delivery (Oxygen) Room air (08/22/20 12:15 AM) Room air (08/20/20 7:30 AM) Blood pressure sites Arm, right (08/23/20 9:40 AM) Arm, right (08/22/20 4:16 PM) Arm, right (08/22/20 9:35 AM) Temperature Route Oral (08/23/20 9:40 AM) Oral (08/22/20 4:16 PM) Oral (08/22/20 9:35 AM) Dry Weight 101 kg (08/19/20 9:28 PM) Social History Social History Type Response Smoking Status Never (less than 100 in lifetime) entered on: 08/29/19 Sex Female
--- OUTSIDE RECORDS SUMMARY | 2023-09-27 18:14 | XMS_ITS | Continuity of Care Document ---
Author Organization [facility] Address [address] [facility] [place] [address]- Care Team Providers Care Remote Control Mirror Installer Name Role Phone Tim Farnsworth MD Primary Care Physician [phone] [place] [facility] [place](s): 09/24/20 - 10/24/20 [facility] [address] [facility] [place] [address]- Allergies, Adverse Reactions, Alerts Substance Reaction Severity [...] give 325mg per patient preference and re-dose [id number] within 4 hours, if needed. Patient should [...] 30 tablet, 1 Refills, Maintenance, 10/24/2111:38:00 EDT, [facility]/pharmacy #[id number], Partial fill upon patient request if the [...]
--- OUTSIDE RECORDS SUMMARY | 2023-09-27 18:14 | XMS_ITS | Continuity of Care Document ---
Author Organization [facility] Address [address] [place] [address]- Care Team Providers Care Popcorn Vendor Name Role Phone Tim Farnsworth MD Primary Care Physician [place] [facility] [place] 07/14/20 - 08/13/20 [facility] [address] [place] [address]- Allergies, Adverse Reactions, Alerts No Known Medication [...] tablet, 2 Refills, Maintenance, 07/14/20 10:24:00 EDT, [facility]/pharmacy #[id number], Partial fill upon patient request if the [...]
--- OUTSIDE RECORDS SUMMARY | 2023-09-27 18:14 | XMS_ITS | Continuity of Care Document ---
Author Organization [facility] Address [address] [place] [address]- Care Team Providers Care Rn Float Name Role Phone Tim Farnsworth MD Primary Care Physician Encounter [facility] [place] Date(s): 07/14/20 - 08/13/20 [facility] [address] [place] [address]- Allergies, Adverse Reactions, Alerts No Known Medication [...] tablet, 2 Refills, Maintenance, 07/14/20 10:24:00 EDT, [facility]/pharmacy #[id number], Partial fill upon patient request if the [...]
--- OUTSIDE RECORDS SUMMARY | 2023-09-27 18:14 | XMS_ITS | Continuity of Care Document ---
Author Organization [facility] e Medicine Address [address], 4t [address] [place] [address]- Care Team Providers Care Professor Of Political Science Name Role Phone Tim Farnsworth MD Primary Care Physician Encounter [facility] Date(s): 09/16/19 - 10/16/19 [facility] Repro[facility] Medicine [address], 4th [address] [place] [address]- [facility] Allergies, Adverse Reactions, Alerts No Known Medication Allergies Problem List Condition Effective Dates Status Health Status Inform ant Adjustment disorder with mix ed anxiety and depressed mood(Confirmed) Active Social History Social History Type Response Smoking Status Never (less than 100 in lifetime) entered on: 08/29/19 Sex
--- OUTSIDE RECORDS SUMMARY | 2023-09-27 18:14 | XMS_ITS | Continuity of Care Document ---
Author Organization [facility] ancer Care Address [address] [place] [address]- Care Team Providers Care Mainspring Former Arbor End Name Role Phone iTm Farnsworth MD Primary Care Physician [place] [facility] [place] 10/11/21 - 11/10/21 [facility] Care [address] [place] [address]- Allergies, Adverse Reactions, Alerts Substance Reaction Severity [...] give 325mg per patient preference and re-dose [id number] within 4 hours, if needed. Patient should [...] ed anxiety and depressed mood(Confirmed) Active Chlamydia(Confirmed) 2007 Active Cutaneous melanoma left popliteal(Confirmed) 06/25/20 Active Wears contacts for nearsightedness(Confirmed) Active Painful Heavy periods(Confirmed) Active Social History Social History Type Response Smoking Status Never (less than 100 in lifetime) entered on: 08/29/19 Sex Female Care Team Personnel Name: Tim Farnsworth MD Address: [address] [place] [address] Executive Director Sheltered Workshop [place], [place] [address]
--- OUTSIDE RECORDS SUMMARY | 2023-09-27 18:14 | XMS_ITS | Continuity of Care Document ---
Author Organization [facility] Address [address] [place] [address]- Care Team Providers Care Director Of Estate Name Role Phone Tim Farnsworth MD Primary Care Physician En[place] [facility] [place] Date(s): 10/14/20 - 11/13/20 [facility] [address] [place], [place] [address] Allergies, Adverse Reactions, Alerts Substance Reaction [...] give 325mg per patient preference and re-dose [id number] within 4 hours, if needed. Patient should [...] 1 Refills, Maintenance, 10/24/2111:38:00 EDT, [facility]/pharmacy #[id number], Partial fill upon patient request if the [...]
--- OUTSIDE RECORDS SUMMARY | 2023-09-27 18:14 | XMS_ITS | Continuity of Care Document ---
Author Organization [facility] ancer Care Address [address] [place] [address]- Care Team Providers Care Cream Dumper Name Role Phone Tim Farnsworth MD Primary Care Physician [phone] Encounter [facility] [place] [id number] Date(s): 04/14/22 - 05/14/22 [facility] Care [address] [place] [address] Attending Physician: Felton Smith Admitting Physician: [...] give 325mg per patient preference and re-dose [id number] within 4 hours, if needed. Patient should [...] Personnel Name: Hossein ELLIS, Riya Sanabria Position: [facility] SN RN Member Role: Primary Care Nurse Name: Isabel Vilchis RN Position: [facility] Onco RN Member Role: Primary Care Nurse Name: Tim Farnsworth MD Position: [facility] Physician (General Medicine) Member Role: PCP Address: Address: [address] [place] [address] [place] [address]- Care Team Related Persons Name: KAISER MORALES Address: [address] [place] [address] Name: KAREN MORALES Address: [address] [place] [address] Name: JULIAN PACK Address: [employer] Address: [address] [place] [address]
--- OUTSIDE RECORDS SUMMARY | 2023-09-27 18:14 | XMS_ITS | Continuity of Care Document ---
Author Organization [facility] Address [address] [place] [address]- Care Team Providers Care Private Branch Exchange Service Advisor Name Role Phone Tim Farnsworth MD Primary Care Physician En[facility] Date(s): 10/27/20 - 11/26/20 [facility] [address] [place], [place] [address] Allergies, Adverse Reactions, Alerts Substance Reaction [...] give 325mg per patient preference and re-dose [id number] within 4 hours, if needed. Patient should [...] 30 tablet, 1 Refills, Maintenance, 10/24/2111:38:00 EDT, [facility]/pharmacy #[id number], Partial fill upon patient request if the prescription is for a schedule II opioid drug., 175, cm, 10/13/20 16:17:00 E... Start Date: 10/23/20 Status: Ordered Ultra- Multivitamins with Folic Acid [...]
--- OUTSIDE RECORDS SUMMARY | 2023-09-27 18:14 | XMS_ITS | Continuity of Care Document ---
Author Organization [facility] Address [address] [place] [address]- Care Team Providers Care Car Worker Helper Name Role Phone Tim Farnsworth MD Primary Care Physician Encounter [facility] [place] Date(s): 07/21/20 - 08/20/20 [facility] [address] [place] [id number] Allergies, Adverse Reactions, Alerts No [...] opioid drug. Start Date: 07/06/20 Status: Ordered Freestyle Lite Test Strips See Instructions, # 1 pack/packet, Refills 5, Tot. Refills 5, Maintenance, 1 pack = 100 test stripsBlood sugar testing four times a day., 08/17/20 15:09:00 EDT, Supply, 175, cm, 08/17/20 14:33:00 EDT, Height, 96.7, kg, 07/22/20 15:58:00 EDT, Dry Weight Start Date: 08/17/20 Status: Ordered metFORMIN 500 mg oral tablet 2 tablet = 1,000 mg, By Mouth, Daily, # 60 tablet, 2 Refills, Maintenance, 07/14/20 10:24:00 EDT, [facility]/pharmacy #[id number], Partial fill upon patient request if the prescription is for a schedule II opioiddrug., 175.26, cm, 07/06/20 8:32:00 EDT, Height Start [...]
--- OUTSIDE RECORDS SUMMARY | 2023-09-27 18:14 | XMS_ITS | Continuity of Care Document ---
Author Organization [facility] e Medicine Address [address] [facility], 4t [address] [place] [address]- Care Team Providers Care Hvac Sheet Metal Installer Helper Name Role Phone Tim Farnsworth MD Primary Care Physician [phone] Encounter [facility] Date(s): 09/02/19 - 09/09/19 [facility] Reproductive Medicine [address], 4th [address] [place] [address]- [facility] Attending Physician: Lily Troy MD Referring Physician: Tim Farnsworth MD Allergies, Adverse Reactions, Alerts No Known Medication Allergies Vital Signs Most recent to oldest [Reference Range]: 1 Height 175.26 cm (08/29/19 1:35 PM) Weight 85.45 kg (08/29/19 1:35 PM) Body Mass Index [18.5-24.99] 27.82 *H* (08/29/19 1:35 PM) Social History Social History Type Response Smoking Status Never (less than 100 in lifetime) entered on: 08/29/19 Sex
--- OUTSIDE RECORDS SUMMARY | 2023-09-27 18:14 | XMS_ITS | Continuity of Care Document ---
Author Organization [facility] ancer Care Address [address] [place] [address]- Care Team Providers Care Pattern Fitter Name Role Phone Tim Farnsworth MD Primary Care Physician [place] [facility] [place](s): 10/18/22 - 07/16/23 [facility] Care [address] [place] [id number] Discharge Disposition: A-D/C Home Attending [...] give 325mg per patient preference and re-dose [id number] within 4 hours, if needed. Patient should [...] oldest [Reference Range]: 1 Height 175 cm (05/16/23 9:37 AM) Weight 85.5 kg (05/16/23 9:37 AM) Oxygen Saturation [94-100 %] 97 % (05/16/23 9:37 AM) Pulse Rate [55-90 bpm] 76 bpm (05/16/23 9:37 AM) Body Mass Index [18.5-24.99 kg/m2] 27.92 kg/m2 *H* (05/16/23 9:37 AM) Blood Pressure [90-138/55-84 mm Hg] 134/ 88mm Hg (05/16/23 9:37 AM) Temperature [96.8-100.4 DegF] 98.6 DegF (05/16/23 9:37 AM) Mode of Delivery (Oxygen) Room air (05/16/23 9:37 AM) Blood pressure sites Arm, right (05/16/23 9:37 AM) Temperature Route Oral (05/16/23 9:37 AM) Dry Weight 85.5 kg (05/16/23 9:37 AM) Weight Obtained Via Standing scale (05/16/23 9:37 AM) Dry Weight Obtained Via Standing scale (05/16/23 9:37 AM) Social History Social History Type Response Smoking Status Never (less than 100 in lifetime) entered on: 08/29/19 Sex Female Note * Sandi Lawrence: PERFORM, SIGN, VERIFY Event Display: Patient Education/Instruction Authored Date: [id number] [facility] *Heme/Onc Adult Clinical Summary Name IVY PACK Age 43 Years 1980 PCP Tim Farnsworth MD PCP Visit Date 10/18/2022 08:25:00 Additional Instructions: Scheduled Appointments?? Future Appointments ?No Future Appointments Scheduled Follow-Up Instructions ?? With: Address: When: Jace Yung [facility], [facility] [place] [address] Business (2) 11/15/2023 3:00 PM Diagnosis Medications: Please continue your medications until [...] This Visit Future Orders ?No future orders Future Orders ?No future orders Vital Signs Height 175 cm Weight 85.5 kg BMI 27.92 kg/m2 Blood Pressure 134 mm Hg/88 mm Hg Temperature 98.6 DegF Pulse Rate 76 bpm Respiratory Rate 02 Sat Mode of Delivery 97 %/Room air You can now view a summary of your hospital visit from the comfort of your home through a free online portal called [employer]. [employer] is a website that allows you to securely view your medical information including discharge summary, medications and follow-up visits. ??You can alsosend a secure electronic message to your doctor???s office to request appointments, renew medications or just ask a question. You can enroll at [email or web address] or register during your next [...] primary care provider, you may find a [facility] provider by calling [facility] [employer] Link at [phone]. [facility], in keeping with [facility] guidance, no longer requires face masks for staff, patientsor visitors in most situations. Similar to time spent indoors at other locations, there is the chance that you were exposed to respiratory viruses during your time with us (such as flu or COVID-19).? If you develop symptoms concerning for a viral respiratory infection, please seek testing (and treatment if indicated) from your medical provider or home test kit. For information about the plan of care [...] Team Personnel Name: Riya Catalan RN Position: [facility] SN RN Member Role: Primary Care Nurse Name: Tim Farnsworth MD Position: [facility] Physician - Primary Care Member Role: PCP Address: Address: [address] [facility] Electric Range Preparer RADHA Zamora [address]- Name: Jace Yung MD Position: [facility] Physician - Oncology Med Service: Hematology & Oncology Member Role: Admitting Physician Address: Address: [address] [place] [address] Cancer Care [facility] [place] [address]- Care Team Related Persons Name: KAISER MORALES Address: [address] [place] [address] Name: KAREN MORALES Address: [place] [address] [place] [address] Name: JULIAN PACK Address: [employer] Address: [address] [place] [address]
--- OUTSIDE RECORDS SUMMARY | 2023-09-27 18:14 | XMS_ITS | Continuity of Care Document ---
Author Organization [facility] e Medicine Address [address] [place] [address], 4t [address] [place] [address]- Care Team Providers Care Cryptographic Center Specialist Name Role Phone Tim Farnsworth MD Primary Care Physician [facility]counter [facility] Date(s): 12/03/19 - 01/02/20 [facility] Reproductive Medicine [address] [facility], 4th [address] [place] [address] [place] Allergies, Adverse Reactions, Alerts No Known Medication Allergies Problem List Condition Effective Dates Status Health Status Inform ant Adjustment disorder with mix ed anxiety and depressed mood(Confirmed) Active Social History Social History Type Response Smoking Status Never (less than 100 in lifetime) entered on: 08/29/19 Sex
--- OUTSIDE RECORDS SUMMARY | 2023-09-27 18:14 | XMS_ITS | Continuity of Care Document ---
Author Organization [facility] ter Address [address] [place] [address]- Care Team Providers Care Em Physician Name Role Phone Tim Farnsworth MD Primary Care Physician En[facility] [place] Date(s): 08/23/20 - 11/22/[address] [address]- Discharge Disposition: A-D/C Home Attending Physician: Rufus Funez MD Admitting Physician: Rufus Funez MD Referring Physician: Rufus Funez MD Allergies, Adverse Reactions, Alerts Substance Reaction [...] give 325mg per patient preference and re-dose [id number] within 4 hours, if needed. Patient should [...] 30 tablet, 1 Refills, Maintenance, 10/24/2111:38:00 EDT, [facility]/pharmacy #[id number], Partial fill upon patient request if [...]
--- OUTSIDE RECORDS SUMMARY | 2023-09-27 18:14 | XMS_ITS | Continuity of Care Document ---
Author Organization [facility] ter Address [address] [place] [address]- Care Team Providers Care R D Intern Name Role Phone Tim Farnsworth MD Primary Care Physician Encounter [facility] Date(s): 09/18/20 - 09/18/[address] [address]- Discharge Disposition: A-D/C Home Attending Physician: Pancho Ariza MD Admitting Physician: Pancho Ariza MD Referring Physician: Pancho Ariza MD Allergies, Adverse Reactions, Alerts Substance Reaction [...] give 325mg per patient preference and re-dose [id number] within 4 hours, if needed. Patient should [...] opioid drug. Start Date: 07/06/20 Status: Ordered oxyCODONE 5 mg oral tablet 5 mg, 1, tablet, By Mouth, Every 6 hours, PRN, for 7 days, # 15 each, Refills 0, Tot. Refills 0, Acute 09/25/20 13:54:00 EDT, for pain, 09/18/20 13:53:00 EDT, Route to Pharmacy Electronically, [facility]/pharmacy #[id number], Partial fill upon patient request if t... Start Date: 09/18/20 Stop Date: 09/25/20 Status: Ordered Ultra- Multivitamins with Folic Acid [...] Range]: 1 2 3 Height 175 cm (09/18/20 12:39 PM) 175 cm (09/14/20 3:21 PM) Weight 90.7 kg (09/18/20 12:39 PM) 90 kg (09/14/20 3:21 PM) Oxygen Saturation [94-100 %] 95 % (09/18/20 5:15 PM) 95 % (09/18/20 5:00 PM) 99 % (09/18/20 4:45 PM) Pulse Rate [55-90 bpm] 66 bpm (09/18/20 12:39 PM) Body Mass Index [18.5-24.99] 29.62 *H* (09/18/20 12:39 PM) 29.39 *H* (09/14/20 3:21 PM) Blood Pressure [90-138/55-84 mm Hg] 133/79mm Hg (09/18/20 5:15 PM) 136/82mm Hg (09/18/20 5:00 PM) 139/83mm Hg *H* (09/18/20 4:45 PM) Respiratory Rate [16-30 br/min] 17 br/min (09/18/20 5:15 PM) 15 br/min *L* (09/18/20 5:00 PM) 14 br/min *L* (09/18/20 4:45 PM) Temperature [96.8-100.4 DegF] 99 DegF (09/18/20 4:21 PM) 98.1 DegF (09/18/20 12:39 PM) Liters per Minute 5 L/min (09/18/20 4:30 PM) 5 L/min (09/18/20 4:21 PM) Mode of Delivery (Oxygen) Room air (09/18/20 5:15 PM) Room air (09/18/20 5:00 PM) Room air (09/18/20 4:45 PM) Temperature Route Temporal (09/18/20 4:21 PM) Temporal (09/18/20 12:39 PM) Dry Weight 90.7 kg (09/18/20 12:39 PM) 90 kg (09/14/20 3:21 PM) Weight Obtained Via Standing scale (09/18/20 12:39 PM) Patient/family stated (09/14/20 3:21 PM) Dry Weight Obtained Via Standing scale (09/18/20 12:39 PM) Patient/family stated (09/14/20 3:21 PM) Social History Social History Type Response Smoking Status Never (less than 100 in lifetime) entered on: 08/29/19 Sex Female
--- OUTSIDE RECORDS SUMMARY | 2023-09-27 18:14 | XMS_ITS | Continuity of Care Document ---
Author Organization [facility] Address [address] [place] [address]- Care Team Providers Care Realtime Captioner Name Role Phone Tim Farnsworth MD Primary Care Physician En[place] [facility] [place] Date(s): 07/09/20 - 08/08/20 [facility] [address] [place] [address]- Allergies, Adverse Reactions, Alerts No Known Medication [...] tablet, 2 Refills, Maintenance, 07/14/20 10:24:00 EDT, [facility]/pharmacy #[id number], Partial fill upon patient request if the [...]
--- OUTSIDE RECORDS SUMMARY | 2023-09-27 18:14 | XMS_ITS | Continuity of Care Document ---
Author Organization [facility] ter Address [address] [place] [address]- Care Team Providers Care Ranch Hand Supervisor Name Role Phone Tim Farnsworth MD Primary Care Physician [phone] [place] [facility] [place]/19/20 - 09/20/[address] [address] Attending Physician: Pancho Ariza MD Admitting Physician: [...] give 325mg per patient preference and re-dose [id number] within 4 hours, if needed. Patient should [...] 09/18/20 13:53:00 EDT, Route to Pharmacy Electronically, [facility]/pharmacy #[id number], Partial fill upon patient request if t... [...]
--- OUTSIDE RECORDS SUMMARY | 2023-09-27 18:14 | XMS_ITS | Continuity of Care Document ---
Author Organization [facility] e Medicine Address [address] [facility], 4t h [address] [place] [address]- Care Team Providers Care Autism Motor Specialist Name Role Phone Tim Farnsworth MD Primary Care Physician [facility]counter [facility] Date(s): 11/19/19 - 12/19/19 [facility] Reproductive Medicine [address] [facility], 4th [address] [place] [address] [facility] Allergies, Adverse Reactions, Alerts No Known Medication Allergies Problem List Condition Effective Dates Status Health Status Inform ant Adjustment disorder with mix ed anxiety and depressed mood(Confirmed) Active Social History Social History Type Response Smoking Status Never (less than 100 in lifetime) entered on: 08/29/19 Sex
--- OUTSIDE RECORDS SUMMARY | 2023-09-27 18:14 | XMS_ITS | Continuity of Care Document ---
Author Organization [facility] e Medicine Address [address] [facility], 4t [address] [place] [address]- Care Team Providers Care Porcelain Finisher Name Role Phone Tim Farnsworth MD Primary Care Physician [phone] Encounter [facility] [place] [facility] [id number] Date(s): 04/05/22 - 04/12/22 [facility] [address] [facility], 4th [address] [place] [address] Attending Physician: Cassandra Sage MD Referring Physician: Not on Staff, Referring MD Allergies, Adverse Reactions, Alerts Substance Reaction [...] give 325mg per patient preference and re-dose [id number] within 4 hours, if needed. Patient should [...] opioid drug. Start Date: 07/06/20 Status: Ordered clomiPHENE 50 mg oral tablet 50 mg, 1, tablet, By Mouth, Daily, for 5 days, beginning on the 3RD day of menstrual cycle, # 5 tablet, Refills 3, Tot. Refills 3, Acute 04/25/22 9:07:00 EST, 04/05/22 9:07:00 EST, Route to Pharmacy Electronically, [facility]/pharmacy #[id number], Partial fill upo... Start Date: 04/05/22 Stop Date: 04/25/22 Status: Ordered Ovidrel 250 mcg/0.5 mL subcutaneous [...] oldest [Reference Range]: 1 Height 175 cm (04/05/22 8:26 AM) Weight 89.9 kg (04/05/22 8:26 AM) Pulse Rate [55-90 bpm] 82 bpm (04/05/22 8:26 AM) Body Mass Index [18.5-24.99 kg/m2] 29.36 kg/m2 *H* (04/05/22 8:26 AM) Blood Pressure [90-138/55-84 mm Hg] 139/ 85mm Hg *H* (04/05/22 8:26 AM) Blood pressure sites Arm, right (04/05/22 8:26 AM) Weight Obtained Via Standing scale (04/05/22 8:26 AM) Social History Social History Type Response Smoking Status Never (less than 100 in lifetime) entered on: 08/29/19 Sex Female Note * Valencia Jang [place]: PERFORM, SIGN, VERIFY Event Display: Patient Education/Instruction Authored Date: [id number] [facility] *[facility] Clinical Summary Name IVY PACK Age 41 Years 1980 PCP Javad LINO, Tim Ramirez PCP Visit Date 04/05/2022 08:03:00 Additional Instructions: Scheduled Appointments?? Future Appointments ?No Future Appointments Scheduled Follow-Up Instructions ?? Diagnosis Medications: Please continue your medications until treatment is completed or stopped by your provider. Discuss any questions related to medications with your provider. New Medications [facility], [address] [place], [place] [id number], [phone] Chorionic Gonadotropin (Human) (Ovidrel 250 mcg/0.5 mL subcutaneous solution) Take 2 Subcutaneous Injections Once per cycle when directed. Refills: 3. Next Dose: [id number], [address], [place] [id number], [phone] ClomiPHENE (clomiPHENE 50 mg oral tablet) 1 tab(s) Oral Daily for 5 Days. beginning on the 3RD day of menstrual cycle. Refills: 3. Next Dose: Medications to Continue with No Changes These medications were not printed or sent to your pharmacy Acetaminophen (acetaminophen 325 mg oral tablet) 650 Milligram Oral every 4 hours as needed Pain , Mild. (1-3), may give 325mg per patient preference and re-dose with 325mg within 4 hours, if needed.Patient should only receive a total of 650mg of Acetaminophen every 4 hours.. Next Dose: Loratadine (Claritin 10 mg oral tablet) 1 tab(s) Oral Daily in the morning. Next Dose: Allergy Info:?? Other Environmental Allergy Medications Given This Visit Future Orders ?Anti Mullerian Hormone? Order Date:04/05/22?- Complete within?6 months ?Estradiol (Female >= 16yrs)? Order Date:04/05/22?- Complete within?6 months ?TSH with T4 Reflex (Adults Only)? Order Date:04/05/22?- Complete within?6 months ?FSH? Order Date:04/05/22?- Complete within?6 months ?LH? Order Date:04/05/22?- Complete within?6 months ?Prolactin Level? Order Date:04/05/22?- Complete within?6 months Vital Signs Height 175 cm Weight 89.9 kg BMI 29.36 kg/m2 Blood Pressure 139 mm Hg/85 mm Hg Temperature Pulse Rate 82 bpm Respiratory Rate 02 Sat Mode of Delivery / You can now view a summary of your hospital visit from the comfort of your home through a free online portal called [employer]. [employer] is a website that allows you to securely view your medical information including discharge summary, medications and follow-up visits. ??You can alsosend a secure electronic message to your doctor???s office to request appointments, renew medications or just ask a question. You can enroll at [email or web address] or register during your next office visit. [...] primary care provider, you may find a [facility] provider by calling [facility] at [phone]. For information about the plan of care including goals and instructions for your diagnosis, please see the patient education orders section of this document. Patient Education Materials?? The content of this educational material or handout may have been modified, supplemented, or adapted from its original content and format to support your individualized medical care. Additional Provider Instructions: Patient instructed to call with day 1 of cycle, schedule SONO andhave labs done on day 3 of cycle. Instructions for Clomid protocol given to patient. Prescription sent to patient pharmacy and HCG trigger shot sent to [facility]. Patient Care team information Care Team Personnel Name: Riya Catalan RN Position: [facility] SN RN Member Role: Primary Care Nurse Name: Isabel Vilchis RN Position: [facility] Onco RN Member Role: Primary Care Nurse Name: Tim Farnsworth MD Position: [facility] Physician (General Medicine) Member Role: PCP Address: Address: [address] [place] [address] [place]andy [place] [address]- Care Team Related Persons Name: KAISER MORALES Address: home [address] [place] [address] Name: KAREN MORALES Address: home [address] [place] [address] Name: JULIAN PACK Address: [employer] Address: home [address] [place] [address] [place]
--- OUTSIDE RECORDS SUMMARY | 2023-09-27 18:14 | XMS_ITS | Continuity of Care Document ---
Author Organization [facility] ancer Care Address [address] [place] [address]- Care Team Providers Care Drapery And Upholstery Measurer Name Role Phone Tim Farnsworth MD Primary Care Physician Encounter [facility] Date(s): 08/24/20 - 09/22/21 [facility] Care [address] [place] [address]- Discharge Disposition: A-D/C Home Attending Physician: Jace Yung MD Admitting Physician: Jace Yung MD Referring Physician: Pancho Ariza MD Allergies, [...] give 325mg per patient preference and re-dose [id number] within 4 hours, if needed. Patient should [...] Range]: 1 2 3 Height 175 cm (09/16/21 2:56 PM) 175 cm (09/16/21 2:07 PM) 175 cm (08/19/21 2:31 PM) Weight 87.5 kg (07/19/21 2:44 PM) 85.9 kg (05/27/21 1:50 PM) 86.0 kg (03/30/21 2:05 PM) Oxygen Saturation [94-100 %] 98 % (09/16/21 2:07 PM) 100 % (08/19/21 2:31 PM) 99 % (07/22/21 2:05 PM) Pulse Rate [55-90 bpm] 79 bpm (09/16/21 2:07 PM) 77 bpm (08/19/21 2:31 PM) 65 bpm (07/22/21 2:05 PM) Body Mass Index [18.5-24.99] 28.57 *H* (07/19/21 2:44 PM) 28.05 *H* (05/27/21 1:50 PM) 28.08 *H* (03/30/21 2:05 PM) Blood Pressure [90-138/55-84 mm Hg] 129/82mm Hg (09/16/21 2:07 PM) 132/76mm Hg (08/19/21 2:31 PM) 126/80mm Hg (07/22/21 2:05 PM) Respiratory Rate [16-30 br/min] 18 br/min (05/27/21 2:30 PM) Temperature [96.8-100.4 DegF] 97.6 DegF (09/16/21 2:07 PM) 97.8 DegF (08/19/21 2:31 PM) 97.5 DegF (07/22/21 2:05 PM) Mode of Delivery (Oxygen) Room air (09/16/21 2:07 PM) Room air (08/19/21 2:31 PM) Room air (07/22/21 2:05 PM) Blood pressure sites Arm, right (09/16/21 2:07 PM) Arm, right (08/19/21 2:31 PM) Arm, right (07/22/21 2:05 PM) Temperature Route Temporal (09/16/21 2:56 PM) Temporal (09/16/21 2:07 PM) Temporal (08/19/21 2:31 PM) Dry Weight 87.5 kg (07/19/21 2:44 PM) 85.9 kg (05/27/21 1:50 PM) 86.0 kg (03/30/21 2:05 PM) Weight Obtained Via Standing scale (07/19/21 2:44 PM) Standing scale (05/27/21 1:50 PM) Standing scale (03/30/21 2:05 PM) Dry Weight Obtained Via Standing scale (07/19/21 2:44 PM) Standing scale (05/27/21 1:50 PM) Standing scale (03/30/21 2:05 PM) Social History Social History Type Response Smoking Status Never (less than 100 in lifetime) entered on: 08/29/19 Sex Female
--- OUTSIDE RECORDS SUMMARY | 2023-09-27 18:14 | XMS_ITS | Continuity of Care Document ---
Author Organization [facility] e Medicine Address [address] [facility], 4t [address] [place] [address]- Care Team Providers Care Grain Oilseed Or Pasture Farm Worker Name Role Phone Javad LINO, Tim Ramirez Primary Care Physician [phone] [facility]counter [facility] Date(s): 10/15/19 - 11/14/19 [facility]ductive [facility] [address] [facility], 4th Floor [address] [place] [address]- [facility] Allergies, Adverse Reactions, Alerts No Known Medication Allergies Problem List Condition Effective Dates Status Health Status Inform ant Adjustment disorder with mix ed anxiety and depressed mood(Confirmed) Active Social History Social History Type Response Smoking Status Never (less than 100 in lifetime) entered on: 08/29/19 Sex
--- OUTSIDE RECORDS SUMMARY | 2023-09-27 18:14 | XMS_ITS | Continuity of Care Document ---
Author Organization [facility] Address [address] [place] [address]- Care Team Providers Care Account Support Analyst Name Role Phone Tim Farnsworth MD Primary Care Physician [phone] [place] [facility] [place] 09/25/20 - 10/25/20 [facility] [address] [place], [place] [address] Allergies, Adverse Reactions, Alerts Substance [...] give 325mg per patient preference and re-dose [id number] within 4 hours, if needed. Patient should [...] 30 tablet, 1 Refills, Maintenance, 10/24/2111:38:00 EDT, [facility]/pharmacy #[id number], Partial fill upon patient request if the [...]
--- OUTSIDE RECORDS SUMMARY | 2023-09-27 18:14 | XMS_ITS | Continuity of Care Document ---
Author Organization [facility] e Medicine Address [address] [place] [address], 4t [address] [place] [address]- Care Team Providers Care Seed Laboratory Technician Name Role Phone Tim Farnsworth MD Primary Care Physician Encounter [facility] Date(s): 11/08/19 - 12/08/19 [facility] Reproductive [facility] [address] [facility], 4th [address] [place] [address] [place] [facility] Allergies, Adverse Reactions, Alerts No Known Medication Allergies Problem List Condition Effective Dates Status Health Status Inform ant Adjustment disorder with mix ed anxiety and depressed mood(Confirmed) Active Social History Social History Type Response Smoking Status Never (less than 100 in lifetime) entered on: 08/29/19 Sex
--- OUTSIDE RECORDS SUMMARY | 2023-09-27 18:14 | XMS_ITS | Continuity of Care Document ---
Author Organization [facility] anc Care Address [address] [place] [address]- Care Team Providers Care Sheet Metal Shop Foreman Name Role Phone Tim Farnsworth MD Primary Care Physician Encounter [facility] [place] Date(s): 08/24/20 - 09/23/20 [facility] Care [address] [place] [address] Attending Physician: Felton Smith Admitting Physician: AdmFelton wolfe Referring Physician: Admtr, Ar8 Allergies, Adverse Reactions, [...] give 325mg per patient preference and re-dose [id number] within 4 hours, if needed. Patient should [...] 09/18/20 13:53:00 EDT, Route to Pharmacy Electronically, [facility]/pharmacy #[id number], Partial fill upon patient request if t... [...]
--- OUTSIDE RECORDS SUMMARY | 2023-09-27 18:14 | XMS_ITS | Continuity of Care Document ---
Author Organization [facility] e Medicine Address [address] [facility], 4t [address] [place] [address]- Care Team Providers Care Nurse Liaison Name Role Phone Tim Farnsworth MD Primary Care Physician [phone] Encounter [facility] [place] Date(s): 04/28/22 - 05/28/22 [facility] Reproductive Medicine [address] [facility], 4th [address] [place] [id number] Allergies, Adverse Reactions, Alerts Substance Reaction [...] give 325mg per patient preference and re-dose [id number] within 4 hours, if needed. Patient should [...] Team Personnel Name: Riya Catalan RN Position: [facility] SN RN Member Role: Primary Care Nurse Name: Deng ELLIS, Isabel Position: [facility] Onco RN Member Role: Primary Care Nurse Name: Tim Farnsworth MD Position: [facility] Physician (General Medicine) Member Role: PCP Address: Address: [address] [place] [address] [place] [address]- Care Team Related Persons Name: KAISER MORALES Address: home [address] [place] [address] Name: KAREN MORALES Address: [address] [place] [address] Name: JULIAN PACK Address: [employer] Address: home [address] [place] [address] [place]
--- OUTSIDE RECORDS SUMMARY | 2023-09-27 18:15 | XMS_ITS | Continuity of Care Document ---
Author Organization [facility] e Medicine Address [address] [facility], 4t [address] [place] [address]- Care Team Providers Care Skoog Machine Operator Name Role Phone Javad LINO, Tim Ramirez Primary Care Physician Encounter [facility] Date(s): 10/07/19 - 10/14/19 [facility] Reproductive Medicine [address], 4th [address] [place] [address] [facility] Attending Physician: Lily Troy MD Allergies, Adverse Reactions, Alerts No Known Medication Allergies Medications No Known Medications Problem List Condition Effective Dates Status Health Status Inform ant Adjustment disorder with mix ed anxiety and depressed mood(Confirmed) Active Vital Signs Most recent to oldest [Reference Range]: 1 Height 175.26 cm (10/07/19 9:48 AM) Weight 88 kg (10/07/19 9:48 AM) Pulse Rate [55-90 bpm] 77 bpm (10/07/19 9:48 AM) Body Mass Index [18.5-24.99] 28.65 *H* (10/07/19 9:48 AM) Blood Pressure [90-138/55-84 mm Hg] 133/ 91mm Hg (10/07/19 9:48 AM) Blood pressure sites Arm, left (10/07/19 9:48 AM) Weight Obtained Via Standing scale (10/07/19 9:48 AM) Social History Social History Type Response Smoking Status Never (less than 100 in lifetime) entered on: 08/29/19 Sex
--- OUTSIDE RECORDS SUMMARY | 2023-09-27 18:15 | XMS_ITS | Continuity of Care Document ---
Author Organization [facility] e Medicine Address [address] [facility], 4t [address] [place] [address]- Care Team Providers Care Surgery Assistant Name Role Phone Javad LINO, Tim Ramirez Primary Care Physician Encounter [facility] Date(s): 01/21/20 - 02/20/20 [facility] Reproductive Medicine [address] [facility], 4th Floor [address] [place] [id number] Attending Physician: Felton Smith Admitting Physician: Felton Smith Referring Physician: Admtr ArAguilar Allergies, Adverse Reactions, Alerts No Known Medication Allergies Problem List Condition Effective Dates Status Health Status Inform ant Adjustment disorder with mix ed anxiety and depressed mood(Confirmed) Active Social History Social History Type Response Smoking Status Never (less than 100 in lifetime) entered on: 08/29/19 Sex
--- OUTSIDE RECORDS SUMMARY | 2023-09-27 18:15 | XMS_ITS | Continuity of Care Document ---
Author Organization [facility] Address [address] [place] [address]- Care Team Providers Care Induction Coordination Power Engineer Name Role Phone Tim Farnsworth MD Primary Care Physician [phone] Encounter [facility] Date(s): 07/15/20 - 08/14/20 [facility] [address] [place] [address]- Attending Physician: AdmSom [email or web address] Admitting Physician: Admtr, Ar8 Referring Physician: Admtr, Ar8 Allergies, Adverse Reactions, Alerts No Known Medication [...] tablet, 2 Refills, Maintenance, 07/14/20 10:24:00 EDT, [facility]/pharmacy #[id number], Partial fill upon patient request if the [...]
--- OUTSIDE RECORDS SUMMARY | 2023-09-27 18:15 | XMS_ITS | Continuity of Care Document ---
Author Organization [facility] e Medicine Address [address] [place] [address], 4t [address] [place] [address]- Care Team Providers Care Paint Roller Winder Name Role Phone Tim Farnsworth MD Primary Care Physician Encounter [facility] Date(s): 11/20/19 - 11/27/19 [facility] Reproductive Medicine [address] [facility], 4th Floor [address] [place] [address] [facility] Attending Physician: Lily Troy MD Referring [...]
--- OUTSIDE RECORDS SUMMARY | 2023-09-27 18:15 | XMS_ITS | Continuity of Care Document ---
Author Organization [facility] Address [address] [place] [address]- Care Team Providers Care Cork Insulation Setter Name Role Phone Tim Farnsworth MD Primary Care Physician [phone] Encounter [facility] Date(s): 08/17/20 - 09/16/20 [facility] [address] [place] [address]- Allergies, Adverse Reactions, Alerts Substance Reaction Severity [...] give 325mg per patient preference and re-dose [id number] within 4 hours, if needed. Patient should [...]
--- OUTSIDE RECORDS SUMMARY | 2023-09-27 18:15 | XMS_ITS | Continuity of Care Document ---
Author Organization [facility] e Medicine Address [address] [facility], 4t h Floor [address] [place] [address]- Care Team Providers Care Sales Agent Fire Insurance Name Role Phone Tim Farnsworth MD Primary Care Physician Encounter [facility] Date(s): 10/25/19 - 11/24/19 [facility] Reproductive Medicine [address] [facility], 4th [address] [place] [address] [place] Allergies, Adverse Reactions, Alerts No Known Medication Allergies Problem List Condition Effective Dates Status Health Status Inform ant Adjustment disorder with mix ed anxiety and depressed mood(Confirmed) Active Social History Social History Type Response Smoking Status Never (less than 100 in lifetime) entered on: 08/29/19 Sex
--- OUTSIDE RECORDS SUMMARY | 2023-09-27 18:15 | XMS_ITS | Continuity of Care Document ---
Author Organization [facility] Address [address] [place] [address]- Care Team Providers Care Job Checker Name Role Phone Tim Farnsworth MD Primary Care Physician [place] [facility] [place] Date(s): 07/15/20 - 08/14/20 [facility] [address] [place] [address] Allergies, Adverse Reactions, Alerts No Known Medication [...] tablet, 2 Refills, Maintenance, 07/14/20 10:24:00 EDT, [facility]/pharmacy #[id number], Partial fill upon patient request if the [...]
[2023-09-27 18:45] VITALS: BP 129/96; PULSE 79; RESP 18; TEMP 37; O2SAT 100
[2023-09-27 19:12] VITALS: BP 137/87; PULSE 64
[2023-09-27 19:14] VITALS: BP 138/94; PULSE 77
[2023-09-27 19:16] VITALS: BP 133/94; PULSE 86
[2023-09-27] MEDS: Meclizine HCl 25 MG TABLET 50 MG PO (19:50)
[2023-09-27 20:07] LABS: Troponin-I High Sensitivity < 2.7 ng/L (<3.5-17.0)
[2023-09-27 20:09] VITALS: BP 135/93; PULSE 67; RESP 16; TEMP 36.6; O2SAT 98
--- NOTE | 2023-09-27 21:34 | PC.NURSE ---
Pt states she needs to leave I'm a single mom, I've been here since 12 PA notified.
== END 2023-09-27 21:35 | disposition left against medical advice (07) ==
PROVIDERS: Physician Assistant; Registered Nurse Emergency; Emergency Provider Emergency Medicine; PCP Pediatrics
DX: R42 Dizziness and giddiness (principal)
CPT/HCPCS: 36415; 70450; 80053; 84484; 84702; 85025; 93005; 99283; 99284

== ENCOUNTER → 2023-09-27 13:16 | Outpatient (BNV) | payer OTHER, SELFPAY | PROVIDERS: Emergency Provider Emergency Medicine; PCP Pediatrics; Visit Provider Internal Medicine | DX: R42 Dizziness and giddiness (principal) | CPT/HCPCS: 93010 ==